=== PATIENT | female | born 1950 | race Caucasian/White ===

== ENCOUNTER 2018-02-11 15:52 | Emergency (ER) | payer MEDICARE, BC ==
[~2018-02-11] VITALS: Ht 162.6 cm; Wt 59.1 kg
[2018-02-11 16:22] LABS: BASOPHILS # (AUTO) 0.02 x10^3/uL (0-0.1); BASOPHILS % (AUTO) 0 % (0-1); EOSINOPHILS # (AUTO) 0.25 x10^3/uL (0-0.4); EOSINOPHILS % (AUTO) 5 % (1-7); LYMPHOCYTES # (AUTO) 0.71 x10^3/uL (1-3.4); LYMPHOCYTES % (AUTO) 13 % (22-44); MD NO; MEAN CORPUSCULAR HEMOGLOBIN 31.6 pg (27.0-34.8); MEAN CORPUSCULAR HGB CONC 32.3 g/dL (32.4-35.8); MEAN CORPUSCULAR VOLUME 97.9 fL (80-100); MEAN PLATELET VOLUME 7.2 fL (7.4-10.4); MONOCYTES # (AUTO) 0.23 x10^3/uL (0.2-0.8); MONOCYTES % (AUTO) 4 % (2-9); NEUTROPHILS # (AUTO) 4.24 x10^3/uL (1.8-6.8); NEUTROPHILS % (AUTO) 78 % (42-75); PLATELET COUNT 302 x10^3/uL (130-400); RED BLOOD COUNT 4.14 x10^6/uL (3.82-5.3); RED CELL DISTRIBUTION WIDTH 13.7 % (9.6-15.2)
[2018-02-11 16:28] LABS: ANION GAP 7 mmol/L (5-15); CALCIUM 8.5 mg/dL (8.5-10.1); CHLORIDE 98 mmol/L (98-107)
[2018-02-11 16:33] LABS: ALANINE AMINOTRANSFERASE 23 U/L (12-78); ALKALINE PHOSPHATASE 74 U/L (45-117); BILIRUBIN,TOTAL 0.4 mg/dL (0.2-1.0); CREATININE 0.81 mg/dL (0.55-1.02); T4 (THYROXINE) 0.9 mcg/dL (4.8-13.9); TOTAL PROTEIN 7.4 g/dL (6.4-8.2); TROPONIN I < 0.015 ng/mL (0.000-0.045)
--- NOTE | 2018-02-11 17:41 | NUR ---
PT TO ROOM FROM LOBBY
--- NOTE | 2018-02-11 17:48 | NUR ---
ASSUMED PT CARE OF PT. FIRST CONTACT WITH PT. 67 FEMALE PRESENTS TO ED WITH C/O NEEDING MED REFILLS. "I HAVE BEEN OUT OF MY MEDICATIONS FOR 2 MONTHS. I CAN'T GET INTO MY PCP. THEY KEEP TELLING ME I CAN'T GET AN APPT. I'M OUT OF MY CYMBALTA AND SYNTHROID. I'M ALSO OUT OF MY PAIN MEDS. I CAN'T GO TO MY PAIN SPECIALIST BECAUSE I CAN'T GET INTO MY PCP. I STARTED GETTING CP, BUT I KNOW IT'S ANXIETY. I'M JUST NEEDING MY MEDICATIONS. I'VE BEEN ON SOME FOR OVER 20 YEARS. I'VE DROPPED 15 POUNDS IN OVER 12 DAYS FROM NOT HAVING MEDS." NO C/O N/V/D, TRAUMA, SYNCOPE, SOB. PT PLACED ON CONT PULSE OX, NIBP. BEDSIDE.
[2018-02-11 17:55] VITALS: BP 154/84
--- NOTE | 2018-02-11 18:24 | NUR ---
PT AMBULATORY WITH STEADY GAIT TO BATHROOM. PT STATES "I'M DRESSED BECAUSE I GET TO GO HOME." NO ACUTE DISTRESS NOTED.
[2018-02-11] MEDS ORDERED: DULOXETINE 30 MG CAPSULE.DR PO ONE (18:30)
[2018-02-11] MEDS ORDERED: LEVOTHYROXINE 25 MCG TABLET PO ONE (18:30)
--- NOTE | 2018-02-11 18:36 | NUR ---
MED REQUEST SENT TO PHARMACY
--- NOTE | 2018-02-11 19:02 | NUR ---
BEDSIDE REPORT RECEIVED FROM ADRIANA MEAD. ASSUMED CARE OF PT. AWAITING MEDICATION FROM PHARMACY.
--- NOTE | 2018-02-11 19:11 | NUR ---
PT MEDICATED PER EMAR. 5 RIGHTS ADDRESSED
== END 2018-02-11 19:20 | disposition home or self-care (01) ==
LOC: ED 19:00
DX: E89.0 Postprocedural hypothyroidism (principal); Z76.0 Encounter for issue of repeat prescription; M54.2 Cervicalgia; G89.29 Other chronic pain; F32.9 Major depressive disorder, single episode, unspecified; Z88.2 Allergy status to sulfonamides; Z88.5 Allergy status to narcotic agent; Z86.39 Personal history of other endocrine, nutritional and metabolic disease
CPT/HCPCS: 36415; 71045; 80053; 84436; 84443; 84484; 85025; 93005; 99284

== ENCOUNTER → 2019-02-24 | Outpatient (CLI) | payer MEDICARE, BC ==
[2019-02-24 15:53] LABS: BASOPHILS # (AUTO) 0.06 x10^3/uL (0-0.1); BASOPHILS % (AUTO) 1 % (0-1); EOSINOPHILS # (AUTO) 0.16 x10^3/uL (0-0.4); EOSINOPHILS % (AUTO) 3 % (1-7); LYMPHOCYTES # (AUTO) 0.61 x10^3/uL (1-3.4); LYMPHOCYTES % (AUTO) 10 % (22-44); MD NO; MEAN CORPUSCULAR HEMOGLOBIN 30.9 pg (27.0-34.8); MEAN CORPUSCULAR HGB CONC 32.8 g/dL (32.4-35.8); MEAN CORPUSCULAR VOLUME 94.1 fL (80-100); MEAN PLATELET VOLUME 6.8 fL (7.4-10.4); MONOCYTES # (AUTO) 0.38 x10^3/uL (0.2-0.8); MONOCYTES % (AUTO) 6 % (2-9); NEUTROPHILS # (AUTO) 4.98 x10^3/uL (1.8-6.8); NEUTROPHILS % (AUTO) 81 % (42-75); PLATELET COUNT 330 x10^3/uL (130-400); RED CELL DISTRIBUTION WIDTH 16.7 % (9.6-15.2)
[2019-02-24 16:17] LABS: ALBUMIN 4.2 g/dL (3.4-5.0); CALCIUM 9.2 mg/dL (8.5-10.1); CHLORIDE 98 mmol/L (98-107)
[2019-02-24 16:29] LABS: % IRON SATURATION 13 % (20-55); ALANINE AMINOTRANSFERASE 40 U/L (12-78); ALKALINE PHOSPHATASE 94 U/L (45-117); ANION GAP 4 mmol/L (5-15); BILIRUBIN,TOTAL 0.4 mg/dL (0.2-1.0); CHOL/HDL RATIO 1.9; CHOLESTEROL, TOTAL 202 mg/dL (140-239); FREE T4 (FREE THYROXINE) 0.55 ng/dL (0.76-1.46); HDL CHOL % 53 % (28-40); HDL CHOLESTEROL (DIRECT) 107 mg/dL (40-60); IRON LEVEL 42 mcg/dL (50-170); LDL CHOLESTEROL,CALCULATED 85 mg/dL (54-169); LDL/HDL RATIO 0.8 (0.5-3.0); TOTAL IRON BINDING CAPACITY 333 mcg/dL (250-450); TOTAL PROTEIN 7.6 g/dL (6.4-8.2); TRIGLYCERIDES 49 mg/dL (50-200); VLDL CHOLESTEROL 10 mg/dL (0-25)
== END | disposition home or self-care (01) ==
LOC: CFH 14:20
PROVIDERS: ATTEND Family Medicine
DX: D64.9 Anemia, unspecified (principal); E03.9 Hypothyroidism, unspecified; E55.9 Vitamin D deficiency, unspecified; D33.1 Benign neoplasm of brain, infratentorial; R73.9 Hyperglycemia, unspecified
CPT/HCPCS: 36415; 80053; 80061; 82306; 82728; 83036; 83540; 83550; 84439; 84443; 85025